=== PATIENT | male | born 1990 | race Caucasian/White ===

== ENCOUNTER 2016-10-10 10:51 | Emergency (ER) | payer BC ==
[~2016-10-10] VITALS: Ht 167.6 cm; Wt 59.0 kg
--- NOTE | ~2016-10-10 | CR58 ---
[facility] A Service of [facility] & [facility] RADIOLOGY TEXT RESULTS PATIENT: BARBER GARCIA LOCATION: CFTX : 86 UNIT #: [id number] AGE: [address]: Ginny Pierre SEX: M ORDER DR: [id number] [facility] [address] [place], [place] [address] [id number] MR#: [id number] Acc #: [id number] NAME: BARBER GARCIA : 1990 SEX: M STUDY DATE/TIME: 10/10/2016 11:35 UNIT: [facility] ROOM: STUDY DESCRIPTION: CR Cervical Spine 2 or 3 Views Attending Physician: Ginny Pierre P.A.-C. Ordering Physician: Ginny Pierre P.A.-C. Primary Care Physician: Primary Care Physician No MEDICAL IMAGING REPORT This report is preliminary unless electronic signature is present EXAM C-spine 3 views HISTORY Right-sided jaw and neck pain, onset this morning. No trauma. FINDINGS AP lateral and open mouth odontoid views submitted. There is head tilt to the left but no significant malalignment of the cervical spine. Atlantoaxial joint unremarkable. Prevertebral soft tissues appear normal. Disc spaces maintained. Upper thorax unremarkable. IMPRESSION Negative C-spine. Dictated by... Tiffanie Katz M.D. THIS IS AN ELECTRONICALLY VERIFIED REPORT Tiffanie Katz M.D. at 10/10/2016 5:03 PM TRUDY/fco TD: 10/10/2016 16:05 JOB #: [id number] MEDICAL IMAGING REPORT Page 1 of 1 COPY
== END 2016-10-10 13:21 | disposition home or self-care (01) ==
LOC: CED 10:51 → CFTX 10:51
DX: S16.1XXA Strain of muscle, fascia and tendon at neck level, initial encounter (principal); R11.0 Nausea; Z90.49 Acquired absence of other specified parts of digestive tract; Z98.890 Other specified postprocedural states; Z88.0 Allergy status to penicillin; X58.XXXA Exposure to other specified factors, initial encounter; Y92.009 Unspecified place in unspecified non-institutional (private) residence as the place of occurrence of the external cause
CPT/HCPCS: 72040; 96372; 99283; J1885